=== PATIENT | female | born 2000 | race Caucasian/White ===

== ENCOUNTER → 2018-02-17 | Outpatient (CLI) | payer SELFPAY ==
[2018-02-18 11:51] LABS: RUBELLA IgG QUALITATIVE IMMUNE (IMMUNE)
[2018-02-18 14:13] LABS: MUMPS VIRUS IgG ANTIBODY 92.1 AU/mL (Immune >10.9)
[2018-02-18 14:13] LABS: RUBEOLA IgG ANTIBODY >300.0 AU/mL (Immune >29.9)
== END ==
LOC: M WUC 10:31
DX: Z00.00 Encounter for general adult medical examination without abnormal findings (principal)
CPT/HCPCS: 86762

== ENCOUNTER 2023-04-21 00:05 | Inpatient (IN) | payer MEDICAID, OTHER, SELFPAY ==
[~2023-04-21] VITALS: Ht 157.5 cm; Wt 90.9 kg
[2023-04-21 02:17] LABS: HEMOGLOBIN 13.4 g/dl (12.0-15.5); MEAN CORPUSCULAR HEMOGLOBIN 27.6 pg (27.0-33.0); MEAN CORPUSCULAR HGB CONC 32.7 g/dl (32.0-36.5); MEAN CORPUSCULAR VOLUME 84.5 fl (80.0-96.0); PLATELET COUNT, AUTOMATED 333 10^3/uL (150-450); RED BLOOD COUNT 4.85 10^6/uL (4.00-5.40); WHITE BLOOD COUNT 10.4 10^3/uL (4.0-10.0)
[2023-04-21 02:36] LABS: AMPHETAMINES LEVEL URINE NEGATIVE (NEGATIVE); BARBITURATES URINE NEGATIVE (NEGATIVE); BENZODIAZEPINES URINE NEGATIVE (NEGATIVE); CANNABINOIDS URINE NEGATIVE (NEGATIVE); COCAINE METABOLITE URINE NEGATIVE (NEGATIVE); METHADONE URINE NEGATIVE (NEGATIVE); OPIATES URINE NEGATIVE (NEGATIVE); PHENCYCLIDINE URINE NEGATIVE (NEGATIVE)
[2023-04-21 02:38] LABS: ETHYL ALCOHOL (ETHANOL) 0.005 % (0.000-0.010)
[2023-04-21 02:40] LABS: ALKALINE PHOSPHATASE 75 U/L (46-116); ALT/SGPT 27 U/L (7.0-40); AST/SGOT 18 U/L (<34); BILIRUBIN,DIRECT 0.1 MG/DL (<0.4); BILIRUBIN,TOTAL 0.4 MG/DL (0.3-1.2); BLOOD UREA NITROGEN 11 MG/DL (9-23); CALCIUM LEVEL 9.1 MG/DL (8.5-10.1); CARBON DIOXIDE LEVEL 25 MMOL/L (20-31); CHLORIDE LEVEL 108 MMOL/L (98-107); CREATININE FOR GFR 0.72 MG/DL (0.55-1.30); GLOMERULAR FILTRATION RATE > 60.0 (>60); GLUCOSE, FASTING 87 MG/DL (60-100); POTASSIUM SERUM 3.8 MMOL/L (3.5-5.1); SALICYLATE LEVEL < 3.0 MG/DL (<30); SODIUM LEVEL 140 MMOL/L (136-145); TOTAL PROTEIN 6.9 G/DL (5.7-8.2)
[2023-04-21 03:13] LABS: THYROID STIMULATING HORMONE 4.478 uIU/ML (0.55-4.78)
[2023-04-21] MEDS ORDERED: HOME MED LIST COMPLETE! XX SCH (05:50)
[2023-04-21] MEDS ORDERED: diphenhydrAMINE 25MG CAP PO PRN (06:10)
[2023-04-21] MEDS ORDERED: MAALOX 30 ML SUSP *UDC PO PRN (06:10)
[2023-04-21] MEDS ORDERED: MOM 30ML SUSPENSION UDC PO PRN (06:10)
[2023-04-21] MEDS ORDERED: IBUPROFEN 400MG TAB PO PRN (06:10)
[2023-04-21 08:49] VITALS: TEMP 97.4; O2SAT 100
[2023-04-21 09:47] VITALS: BP 140/90
[2023-04-21] MEDS ORDERED: VENLAFAXINE **XR** 75MG CAPSULE PO SCH (10:55)
[2023-04-21] MEDS ORDERED: OLANZapine ORAL DISINTEGRATING TAB 5MG PO PRN (10:55)
[2023-04-21 11:57] LABS: HCG, SERUM QUALITATIVE NEGATIVE (NEGATIVE)
[2023-04-21 18:33] VITALS: BP 155/79; TEMP 97.4
[2023-04-21] MEDS: traZODone 50 MG TAB PO PRN (20:12)
[2023-04-21] MEDS: ARIPiprazole 2 MG TAB PO SCH (20:12)
[2023-04-22 06:43] VITALS: BP 131/72; TEMP 97.5; O2SAT 95
[2023-04-22 06:59] LABS: CHOLESTEROL RISK RATIO 3.09 (<5); HDL CHOLESTEROL 57.6 MG/DL (>40); LDL CHOLESTEROL 84.8 MG/DL (<100); NON-HDL-C 120.4 MG/DL
[2023-04-22] MEDS: ACETAMINOPHEN TAB 650MG DOSE (2X325MG) PO PRN (08:17)
[2023-04-22] MEDS ORDERED: TRAZ-252 PO (12:10)
[2023-04-22] MEDS ORDERED: ABIL1TAB13 PO (12:10)
[2023-04-22] MEDS ORDERED: OLAN5ZYD PO (12:10)
== END 2023-04-22 14:15 | disposition home or self-care (01) | DRG 754 ==
LOC: M ED 00:05 → M ED INP 06:06 → M PSY 08:25
PROVIDERS: ADMIT Psychiatry & Neurology Psychiatry; ATTEND Student in an Organized Health Care Education/Training Program
DX: F32.A Depression, unspecified (principal); F41.9 Anxiety disorder, unspecified; R45.851 Suicidal ideations; R45.850 Homicidal ideations; R01.1 Cardiac murmur, unspecified; Z62.810 Personal history of physical and sexual abuse in childhood; Z91.410 Personal history of adult physical and sexual abuse; Z91.51 Personal history of suicidal behavior; Z20.822 Contact with and (suspected) exposure to COVID-19; Z81.8 Family history of other mental and behavioral disorders